=== PATIENT | female | born 1995 | race Caucasian/White ===

== ENCOUNTER 2018-04-09 13:33 | Outpatient (CLI) | payer OTHER | END 2018-04-09 13:34 | disposition home or self-care (01) | LOC: ULT 13:33 | PROVIDERS: ATTEND Specialist | DX: I31.9 Disease of pericardium, unspecified (principal); I51.9 Heart disease, unspecified | CPT/HCPCS: 93306 ==

== ENCOUNTER 2018-10-08 08:12 | Outpatient (CLI) | payer BC ==
--- NOTE | 2018-10-08 10:09 | MRI ---
MRI OF THE LUMBAR SPINE WITHOUT CONTRAST: INDICATION: Diagnosis code M54.5 with no history of injury. The patient is having right leg pain, numbness, and back pain for 10 years. COMPARISON: None. FINDINGS: Bone marrow signal intensity appears within normal limits. The conus is seen to terminate at approxi mately L1. The visualized retroperitoneum and paravertebral soft tissues appear within normal limits. At the L5-S1 level, there is no appreciable central canal or neural foraminal narrowing. There is a mild broad-based bulge. At L4-5, there is no appreciable central canal or neural foraminal narrowing. At L3-4, there is no appreciable central canal or neural foraminal narrowing. At L2-3, there is no appreciable central canal or neural foraminal narrowing. At L1-L2, there is no appreciable central canal or neural foraminal narrowing. At T12-L1, there is no appreciable central canal or neural foraminal narrowing. IMPRESSION: 1. No appreciable central canal or neural foraminal narrowing. 2. Mild broad-based bulge at L5-S1. POS: [facility]
== END 2018-10-08 08:13 | disposition home or self-care (01) ==
LOC: MRI 08:12
PROVIDERS: ATTEND Family Medicine
DX: M54.9 Dorsalgia, unspecified (principal); R20.0 Anesthesia of skin; M51.87 Other intervertebral disc disorders, lumbosacral region
CPT/HCPCS: 72148